=== PATIENT | male | born 1940 | race Caucasian/White ===

== ENCOUNTER 2021-04-06 09:34 | Outpatient (CLI) | payer OTHER | END 2021-04-06 09:42 | disposition home or self-care (01) | LOC: RAD 09:34 | PROVIDERS: ATTEND Internal Medicine Gastroenterology | DX: R10.30 Lower abdominal pain, unspecified (principal); K80.50 Calculus of bile duct without cholangitis or cholecystitis without obstruction; K80.20 Calculus of gallbladder without cholecystitis without obstruction; K59.01 Slow transit constipation ==

== ENCOUNTER 2022-03-01 07:05 | Emergency (ER) | payer OTHER ==
[~2022-03-01] VITALS: Ht 172.7 cm; Wt 78.5 kg
== END 2022-03-01 14:07 | disposition expired ==
LOC: ER 07:05
DX: K59.00 Constipation, unspecified (principal)